=== PATIENT | male | born 2000 | race Caucasian/White ===

== ENCOUNTER 2023-10-08 10:35 | Emergency (ER) | payer OTHER, SELFPAY ==
[2023-10-08 10:53] VITALS: BP 136/69
[2023-10-08 11:14] VITALS: BMI 27.1
[2023-10-08 11:22] VITALS: BP 128/72
[2023-10-08 12:00] VITALS: BP 132/94
[2023-10-08 13:00] VITALS: BP 154/87
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
== END 2023-10-08 14:00 | disposition home or self-care (01) ==
LOC: EMR 10:35
PROVIDERS: EMERGENCY PHYSICIAN Emergency Medicine; FAMILY PHYSICIAN Internal Medicine
DX: S06.0XAA Concussion with loss of consciousness status unknown, initial encounter (principal); V43.52XA Car driver injured in collision with other type car in traffic accident, initial encounter
CPT/HCPCS: 99284; 70450; 93005